=== PATIENT | female | born 1960 | race Caucasian/White ===

== ENCOUNTER → 2017-07-11 | Outpatient (CLI) | payer MEDICAID | LOC: FIMAGING 12:24 | PROVIDERS: ATTEND Family Medicine | DX: M99.83 Other biomechanical lesions of lumbar region (principal); M51.36 Other intervertebral disc degeneration, lumbar region; M54.16 Radiculopathy, lumbar region; M48.06 Spinal stenosis, lumbar region; M48.07 Spinal stenosis, lumbosacral region ==

== ENCOUNTER → 2017-08-07 | Outpatient (CLI) | payer MEDICAID | LOC: FIMAGING 07:32 | PROVIDERS: ATTEND Orthopaedic Surgery | DX: M23.222 Derangement of posterior horn of medial meniscus due to old tear or injury, left knee (principal); M24.10 Other articular cartilage disorders, unspecified site; M22.42 Chondromalacia patellae, left knee; M25.462 Effusion, left knee ==

== ENCOUNTER 2017-10-07 09:15 | Inpatient (IN) | payer MEDICAID ==
--- NOTE | 2017-10-06 17:21 | GHP ---
[f rep st] PREOP HISTORY AND PHYSICAL DATE OF ADMISSION: 10/07/2017 HISTORY: The patient is a 56-year-old female, who has had chronic problems with her left knee. Over a year ago, an arthroscopy was performed by myself, and this included partial medial and lateral men iscectomy; all 3 compartments were noted to have significant chondromalacia grade 3 and 4. She has s ignificant arthritis of this knee; it is in valgus malalignment, the most severe arthritis in the lat eral compartment. Over the last months, the knee has become increasingly swollen and painful includi ng emergency room visits. On aspiration, this was partially bloody fluid that Gram stain is signific ant for cultures negative. An MRI was performed in July of this year. There is significant synov ial hypertrophy and inflammation, especially in the suprapatellar recess. This may represent possibl e pigmented villonodular synovitis and could simply be synovitis. There has been interval increase i n articular cartilage loss, now grade 4 in the lateral compartment. She has maintained a large knee effusion, and her pain difficult to control. She has required narcotic medications. Her range of mo tion is limited. She has an altered gait. She has pain with activities of daily living. Previous c onservative measures have been tried. Though she is fairly young for a knee replacement, due to the chronic inflammation and severe osteoarthritis, a left total knee arthroplasty is planned. ALLERGIES: She has no known drug allergies. MEDICATIONS: Include oxycodone 5 mg tablets, 1 every 4-6 hours for pain. PAST MEDICAL/SURGICAL HISTORY: She has had her left knee scope back in April 2016. She has had other orthopedic procedures in and . She does have a history of ventricular arrhythmias. She is a nonsmoker. REVIEW OF SYSTEMS: Positive from the cardiac standpoint for ventricular arrhythmias. She has also b een using narcotics on a frequent basis and prolonged basis. PHYSICAL EXAM,: GENERAL: The patient is a well-developed, well-nourished female in no apparent dist ress. HEAD AND NECK: Normocephalic, atraumatic. CHEST: Clear. CARDIOVASCULAR: Regular rate and rhythm. ABDOMEN: Soft. NEUROLOGIC: She is alert and oriented x3. LEFT KNEE: Shows a large effus ion. This inhibits her flexion, and her range is from around 10 degrees of flexion to 90 degrees. N o erythema or streaking. Calf is nontender. Neurovascular exam is intact. IMPRESSION: Severe and progressive left knee osteoarthritis and persistent hemarthrosis. PLAN: A left knee replacement, synovectomy. Benefits and risks of surgery have been reviewed. She understands the risks include infection, damage to blood vessels or nerves, failure or loosening of c omponents, blood clot in the leg or lungs, bleeding and need for transfusion. She also understands t hat she is relatively young for a total knee replacement, putting her at increased risk for needing a knee revision. She also understands that knees that have had recurrent hemarthrosis are at some ris k for slower recovery and persistent swelling problems. She also has been using narcotics on a consi stent basis and will need more sophisticated pain management. She has signed a consent form, wishes to proceed. /[id number]/MODL
[~2017-10-07 09:15] MED LIST: POVIDONE-IODINE 20 ML in SODIUM CL IRRIG SOLUTION 500 ML IRR ONE; ROPIVACAINE 0.2% 80 MG, EPINEPHrine 0.2 MG, KETOROLAC TROMETHAMINE 30 MG in SYRINGE 0 ML IU ONE; TRANEXAMIC ACID 730 MG in NS 100 ML IV ONE
[2017-10-07] MEDS ORDERED: DEXAMETHASONE 4 MG/ML VIAL IVP ONE (11:28)
[2017-10-07] MEDS ORDERED: ceFAZolin 2 GM/SWFI 2 GM/20 ML SYR IVP ONE (11:28)
[2017-10-07] MEDS ORDERED: FAMOTIDINE 20 MG TAB PO ONE (11:28)
[2017-10-07] MEDS ORDERED: ACETAMINOPHEN 325 MG TAB PO ONE (11:28)
[2017-10-07] MEDS ORDERED: LR 1,000 ML IV ONE (11:29)
[2017-10-07] MEDS ORDERED: ceFAZolin 1 GM/5 ML SYR ONE (11:58)
--- NOTE | 2017-10-07 12:38 | PDANEPAE ---
ANE History of Present Illness 56 yo F w OA here for L TKA ANE Past Medical History - Cardiovascular History Hx Hypertension: No Hx Arrhythmias: No Hx Chest Pain: No Hx Coronary Artery / Peripheral Vascular Disease: No Hx CHF / Valvular Disease: No Hx Palpitations: No Cardiovascular History Comment: Ablation Dr Reyes -"Dr couldn't get areas of irritation of PVC's-permanently" "got some of them" - Pulmonary History Hx COPD: No Hx Asthma/Reactive Airway Disease: No Hx Recent Upper Respiratory Infection: No Hx Oxygen in Use at Home: No Hx Sleep Apnea: No Sleep Apnea Screening Result - Last Documented: Negative - Neurologic History Hx Cerebrovascular Accident: No Hx Seizures: No Hx Dementia: No Neurologic History Comment: had an episode after ablation w/"small stroke- affected vision,had some dizziness". No problems after. "Was an artery nicked w/ ablation?-Dr Reyes queried" - Endocrine History Hx Diabetes: No - Renal History Hx Renal Disorders: No - Liver History Hx Hepatic Disorders: No - Neurological & Psychiatric Hx Hx Neurological and Psychiatric Disorders: No - Cancer History Hx Cancer: No - Congenital Disorder History Hx Congenital Disorders: No - GI History Hx Gastrointestinal Disorders: No - Other Health History Other Health History: OA L knee-severe pain,effusion - Chronic Pain History Chronic Pain: Yes (L knee) - Surgical History Prior Surgeries: L knee scope 2015. R knee scope 2013. ablation-cardiac . lap candis. tonsillectomy age 12 ANE Review of Systems Review of Systems: - Exercise capacity Exercise capacity: >=4 METS METS (RN): 4 METS ANE Patient History - Allergies Allergies/Adverse Reactions: No Known Allergies Allergy (Verified 09/10/17 10:08) - Home Medications Home medications: home medication list seen and reviewed Home Medications: oxyCODONE IR [Oxycodone Ir (*)] 2.5 mg PO DAILY PRN 09/09/17 [Last Taken ] - NPO status NPO Since - Liquids (Date): 10/07/17 NPO Since - Liquids (Time): 04:00 NPO Since - Solids (Date): 10/06/17 NPO Since - Solids (Time): 15:00 - Anes Hx Anes Hx: no prior problems - Smoking Hx Smoking Status: Never smoked - Alcohol Use Alcohol Use: Heavy - Family Anes Hx Family Anes Hx: none ANE Labs/Vital Signs - Vital Signs Blood Pressure: 153/100 Heart Rate: 81 Respiratory Rate: 14 O2 Sat (%): 94 Height: 170.18 cm Weight: 72.575 kg ANE Physical Exam - Airway Neck exam: FROM Mallampati Score: Class 2 Mouth exam: normal dental/mouth exam - Pulmonary Pulmonary: no respiratory distress, clear to auscultation - Cardiovascular Cardiovascular: regular rate and rhythym, no murmur, rub, or gallop - ASA Status ASA Status: II ANE Anesthesia Plan Anesthesia Plan: GA with mask, spinal Regional Anesthesia: single shot NB, adductor canal FNB
[2017-10-07] MEDS ORDERED: MIDAZOLAM 2 MG/2 ML VIAL IVP ONE (12:41)
[2017-10-07] MEDS ORDERED: PROPOFOL/EMULSION 500 MG/50 ML BOTTLE IV ONE ×3 (12:51→14:38)
[2017-10-07] MEDS ORDERED: ROPIVACAINE HCL 150 MG/30 ML INJ ONE (14:38)
[2017-10-07] MEDS ORDERED: clonIDINE 1 MG/10 ML VIAL EP ONE (14:38)
[2017-10-07] MEDS ORDERED: LIDOCAINE 2% JELLY 5 ML TUBE ONE (14:38)
[2017-10-07] MEDS ORDERED: ACETAMINOPHEN 500 MG TAB PO PRN (14:50)
[2017-10-07] MEDS ORDERED: ONDANSETRON 4 MG/2 ML VIAL IVP PRN ×2 (14:50→15:49)
[2017-10-07] MEDS ORDERED: HYDROCODONE/APAP 5/325 TAB PO PRN (14:50)
[2017-10-07] MEDS ORDERED: NALOXONE HCL 0.4 MG/ML INJ IVP PRN (14:50)
[2017-10-07] MEDS ORDERED: OXYCODONE/APAP 5/325 TAB PO PRN (14:50)
[2017-10-07] MEDS ORDERED: DIAZEPAM 10 MG/2 ML SYR IVP PRN (14:50)
[2017-10-07] MEDS ORDERED: MAGNESIUM HYDROXIDE 30 ML UDCUP PO PRN (15:49)
[2017-10-07] MEDS ORDERED: DIPHENOXYLATE/ATROPINE LOMOTIL 1 TAB PO PRN (15:49)
[2017-10-07] MEDS ORDERED: ONDANSETRON DISINTEGRATING 4 MG TAB PO PRN (15:49)
[2017-10-07] MEDS ORDERED: LACTULOSE 20 GM/30 ML UDCUP PO PRN (15:49)
[2017-10-07] MEDS ORDERED: METOCLOPRAMIDE 10 MG/2 ML VIAL IVP PRN (15:49)
[2017-10-07] MEDS ORDERED: TEMAZEPAM 15 MG CAP PO PRN (15:49)
[2017-10-07] MEDS ORDERED: PROMETHAZINE HCL 25 MG/ML INJ IVP PRN (15:49)
[2017-10-07] MEDS ORDERED: diphenhydrAMINE 25 MG CAP PO PRN (15:49)
[2017-10-07] MEDS ORDERED: PROMETHAZINE HCL 25 MG SUPPR PR PRN (15:49)
[2017-10-07] MEDS ORDERED: BISACODYL 10 MG SUPP PR PRN (15:49)
[2017-10-07] MEDS ORDERED: KETOROLAC 30 MG/1 ML SDV IVP PRN (15:49)
[2017-10-07] MEDS ORDERED: POLYETHYLENE GLYCOL 3350 17 GM PKT PO PRN (15:49)
[2017-10-07] MEDS ORDERED: HYDROmorphONE/DILAUDID 1 MG/ML INJ ONE (15:58)
[2017-10-07] MEDS ORDERED: fentaNYL 100 MCG/2 ML INJ ONE (15:58)
[2017-10-07] MEDS ORDERED: LR 1,000 ML IV SCH (16:00)
[2017-10-07] MEDS: fentaNYL 100 MCG/2 ML INJ IVP PRN ×2 (16:02→16:20)
[2017-10-07] MEDS: HYDROmorphONE/DILAUDID 1 MG/ML INJ IVP PRN ×3 (16:02→16:38)
[2017-10-07] MEDS ORDERED: HYDROCODONE/APAP 5/325 TAB ONE (16:36)
[2017-10-07] MEDS: oxyCODONE IR 5 MG TAB PO PRN ×2 (19:40→23:12)
[2017-10-07] MEDS: ACETAMINOPHEN 325 MG TAB PO SCH ×2 (19:40→23:12)
[2017-10-07] MEDS: ceFAZolin 2 GM/SWFI 2 GM/20 ML SYR IVP SCH (20:36)
[2017-10-07] MEDS: SENNOSIDES/DOCUSATE SODIUM TAB PO SCH (20:37)
[2017-10-07] MEDS: FAMOTIDINE 20 MG TAB PO SCH (20:38)
[2017-10-07] MEDS ORDERED: ceFAZolin 2 GM/DEXTROSE 100 ML IV SCH (22:00)
[2017-10-07] MEDS: CYCLOBENZAPRINE 10 MG TAB PO PRN (23:12)
[2017-10-07] MEDS: ASPIRIN 325 MG TAB PO SCH (23:12)
--- NOTE | 2017-10-08 03:38 | GOP ---
[f rep st] OPERATIVE REPORT DATE OF OPERATION: 10/07/2017 SURGEON: Dexter Payne MD LEATHER SCRAPER: Gordo Capellan SA ANESTHESIOLOGIST: Dr. Méndez PREOPERATIVE DIAGNOSIS: Left knee osteoarthritis. POSTOPERATIVE DIAGNOSIS: Left knee osteoarthritis. PROCEDURE PERFORMED: Left total knee arthroplasty. FINDINGS: SPECIMENS: Include excised bone as well as synovial biopsy. All counts were correct. My rn surgical was a medical necessity to perform this total joint replacement. ESTIMATED BLOOD LOSS: Minimal. One drain. INDICATIONS: The patient is a 56-year-old female, who presents with severe tricompartment osteoarthr itis, most involved on the lateral side with valgus malalignment. In addition to her severe arthriti s, she has had repetitive hemarthroses that are culture negative. There is severe degenerative joint disease with cartilage loss and inflammation. Multiple conservative measures have been tried, inclu ding a previous arthroscopy and debridement. She proceeds now for a left total knee arthroplasty. DESCRIPTION OF PROCEDURE: The patient was taken to the operating room, and a spinal anesthetic was p erformed. She was then placed supine with IV sedation. She will have an adductor block in the recov sofiya room after surgery. She received preoperative antibiotics and tranexamic acid. A tourniquet was fit high on the left thigh, and the left leg was prepped and draped free with chlorhexidine. The li mb was elevated, exsanguinated, and the tourniquet inflated to 275 mmHg. I used a medial anterior in cision and dissected through subcutaneous tissue. I used a medial parapatellar arthrotomy. I invert ed the patella. I removed 9 mm of cartilage and bone, and restored that thickness with the patellar component sized at a 35. I drilled PEG holes. This was a good fit. The patella was gently everted. I flexed the knee. There was abundant synovitis throughout this joint that was debrided. I did se nd some pieces of the synovitis for pathology, as there is some concern that it could represent pigme nted villonodular synovitis. There was no specific mass. It was just diffuse synovitis, most abunda ntly in the suprapatellar pouch. I drilled a ship pilot hole in the distal femur using intramedullary dev ice for a 5 degree valgus cut. Because the knee was in severe valgus and there was some insufficienc y of the lateral femoral condyle, I used a +2 cut. I sized the femur to size 4. I made appropriate anterior, posterior, and chamfer cuts and notch cuts for this bi-cruciate stabilized knee, and the tr ial component was a good fit. I used an extramedullary jig on the tibia. I adjusted rotation, poste rior slope, and appropriate depth of cut. I completed the tibial cut perpendicular to the tibial sha ft. I sized this at a size 3, dialed in the rotation, and completed the tibial prep. All the compon ents were removed. Any residual meniscal tissue was debrided, and I did basically a partial synovect mina of this joint. The components were applied over cement, size 4 in the femur, 3 on the tibia, and a 35 patella. Once the cement had hardened, I did trial reductions. I found that a 9 mm articular tray gave me good extension, excellent rollback in extension, and appropriate ligamentous stability. Her patella tracked centrally. The joint was irrigated with antibiotic solution as well as a Betadi ne rinse. Because of the synovectomy work and her previous hemarthrosis, I did place a drain. She g ot a second dose of tranexamic acid. I closed the arthrotomy with interrupted [id number] suture s of 0 Mersilene, subcutaneous tissue was closed with 2-0 Monocryl, and the skin with giulia. The w ound was dressed with Betadine-soaked Adaptic, 4 x 4, sterile Webril, and a long-leg JOSE stocking salina lied. There were no complications. SUMMARY OF COMPONENTS: This is a [employer] knee, a bi-cruciate stabilized knee, all c omponents cemented. The femur is Oxinium. The articular tray is crosslink polyethylene. Femur size 4, tibia size 3, patella is a 35 mm, and the articular insert 9 mm thick. /[id number]/MODL
[2017-10-08] MEDS: ceFAZolin 2 GM/SWFI 2 GM/20 ML SYR IVP SCH (04:45)
[2017-10-08] MEDS: ACETAMINOPHEN 325 MG TAB PO SCH ×3 (04:46→18:28)
[2017-10-08] MEDS: oxyCODONE IR 5 MG TAB PO PRN ×4 (04:47→18:29)
[2017-10-08 05:40] LABS: HEMOGLOBIN 12.8 g/dL (12.6-16.3)
--- NOTE | 2017-10-08 08:07 | SOAPPROG ---
SOAP Progress Note Assessment/Plan: Assessment: 10/08/17 POD#1 L TKA, pain controlled, drain 300, xray fine Plan: 10/08/17 08:06 up with PT, will leave drain in through am, home later today or tomorrow Objective: Vital Signs Temp Pulse Resp BP Pulse Ox 36.7 C 68 16 124/86 H 94 10/08/17 07:37 10/08/17 07:37 10/08/17 07:37 10/08/17 07:37 10/08/17 07:37 Laboratory Results 10/08/17 05:17 10/07/17 10/08/17 10/09/17 05:59 05:59 05:59 Intake Total 1800 Output Total 870 Balance 930 ICD10 Worksheet Patient Problems: Problems Problem Status Onset Ventricular premature complexes Acute
[2017-10-08] MEDS: ASPIRIN 325 MG TAB PO SCH (08:23)
[2017-10-08] MEDS: FAMOTIDINE 20 MG TAB PO SCH ×2 (08:24→20:34)
[2017-10-08] MEDS: SENNOSIDES/DOCUSATE SODIUM TAB PO SCH ×2 (08:40→20:34)
--- NOTE | 2017-10-08 15:11 | ASMTCMCOM ---
CM Note CM Note Notes: PT rec home/HHC/24/hr supervision, pt agreeable to [facility]. Referral sent to [facility] in [employer]. Pt likely d/c tomorrow. CM to follow. Date Signed: 10/08/2017 03:10 PM Electronically Signed By:LAYNE Koenig
[2017-10-08] MEDS: CYCLOBENZAPRINE 10 MG TAB PO PRN (20:35)
[2017-10-09] MEDS: ACETAMINOPHEN 325 MG TAB PO SCH ×4 (00:15→17:51)
[2017-10-09] MEDS: oxyCODONE IR 5 MG TAB PO PRN ×5 (00:16→17:51)
[2017-10-09 05:03] LABS: HEMATOCRIT 36.3 % (38.0-47.0); HEMOGLOBIN 11.7 g/dL (12.6-16.3)
[2017-10-09] MEDS: CYCLOBENZAPRINE 10 MG TAB PO PRN (06:10)
[2017-10-09] MEDS: ASPIRIN 325 MG TAB PO SCH (08:27)
[2017-10-09] MEDS: FAMOTIDINE 20 MG TAB PO SCH (08:27)
[2017-10-09] MEDS: SENNOSIDES/DOCUSATE SODIUM TAB PO SCH (08:29)
[2017-10-09 12:20] VITALS: TEMP 97.6
[2017-10-09 15:08] VITALS: BP 121/78; PULSE 71; RESP 14; O2SAT 92
--- NOTE | 2017-10-09 15:41 | SOAPPROG ---
SOAP Progress Note Assessment/Plan: Assessment: 10/08/17 POD#1 L TKA, pain controlled, drain 300, xray fine 10/09/17 POD#2, drainage decreasing, will remove drain, knee painful Plan: 10/08/17 08:06 up with PT, will leave drain in through am, home later today or tomorrow 10/09/17 15:38 pain control, drain out, PT, likely home later today Objective: Vital Signs Temp Pulse Resp BP Pulse Ox 36.4 C 71 14 121/78 H 92 10/09/17 15:07 10/09/17 15:07 10/09/17 15:07 10/09/17 15:07 10/09/17 15:07 Laboratory Results 10/09/17 04:42 10/08/17 10/09/17 10/10/17 05:59 05:59 05:59 Intake Total 1800 930 Output Total 870 230 Balance 930 700 ICD10 Worksheet Patient Problems: Problems Problem Status Onset Ventricular premature complexes Acute
--- NOTE | 2017-10-09 17:34 | PDIAF ---
- Diagnosis Code Status: Full Code - Medication Management Discharge Medications: Medications to Continue on Transfer oxyCODONE IR [Oxycodone Ir (*)] 2.5 mg PO DAILY PRN 09/09/17 [Last Taken ] Aspirin [Aspirin 325 mg (*)] 325 mg PO DAILY tab 10/09/17 [Last Taken Unknown] oxyCODONE IR [Oxycodone Ir (*)] 5 - 10 mg PO Q4 PRN 14 Days #40 tab 10/09/17 [ Last Taken Unknown] Discharge Medications: Refer to the Discharge Home Medication list for PRN reason. - Orders Services needed: Physical Therapy Diet Recommendation: no restrictions on diet Diet Texture: Regular Texture Diet Natanael Stockings Discontinue Date: 2 weeks Wound Care Instructions: keep wound covered Activity/Weight Bearing Restrictions: WBAT, adv to full rom - Follow Up Care Current Providers and Referrals: Jacquelyn Ashby MD [Primary Care Provider] - Jeramie Wilcox MD [Medical Doctor] -
--- NOTE | 2017-10-10 10:47 | ASMTCMCOM ---
CM Note CM Note Notes: Pt medically stable and d/c yesterday w [facility]. Orders sent today in [employer] and [facility] notified. Date Signed: 10/10/2017 10:47 AM Electronically Signed By:LAYNE Koenig
--- NOTE | 2017-10-10 10:48 | ASDISCHSUM ---
Discharge Information Plan Status:Home with Home Health Medically Cleared to Leave: Discharge Date:10/09/2017 06:24 PM CM D/C Disposition:Home Health Service ADT D/C Disposition:Home Health Service Projected Discharge Date:10/09/2017 11:00 AM Transportation at D/C: Discharge Delay Reason: Follow-Up Date:10/09/2017 11:00 AM Discharge Slot: Final Diagnosis: Placement Information Referral Type:*Home Health Care Services Referral ID:[id number] Provider Name:[facility] [place] Address 1:[address] [place] [address]. Phone Number: Address 2: Fax Number: City:[place] Selection Factors: State:[place] Patient Contact Information Contact Name:MOHSEN Relationship: Address:[address] [place], [place] [address] City:[facility] Phone: State/Zip Code:[place] [address] Email: Financial Information Financial Class: Primary Plan Desc:[employer] [place] Primary Plan Number:[id number] Secondary Plan Desc: Secondary Plan Number: Assessment Information CM Personnel Associate Assessment CM Note CM Note Notes: Lacy is planning to discharge home with her family after her hip arthroplasty. Lacy noted she has a history of heart problems. Dr. Payne is aware of this and he has informed her she might need to stay at the hospital for one to two nights for post-op observation. Dr. Payne also spoke with Lacy about home health care services. Lacy does not have a preference for a home health care agency. Date Signed: 10/04/2017 09:04 AM Electronically Signed By:Floridalma Hope [facility] CM Progress Note CM Note CM Note Notes: PT rec home/HHC/24/hr supervision, pt agreeable to [facility]. Referral sent to [facility] in [employer]. Pt likely d/c tomorrow. CM to follow. Date Signed: 10/08/2017 03:10 PM Electronically Signed By:LAYNE Koenig [facility] CM Progress Note CM Note CM Note Notes: Pt medically stable and d/c yesterday w [facility]. Orders sent today in [employer] and Michele [facility] notified. Date Signed: 10/10/2017 10:47 AM Electronically Signed By:LAYNE Koenig Intervention Information
== END 2017-10-09 18:24 | disposition home health service (06) | DRG 470 ==
LOC: F3N 11:13
PROVIDERS: ADMIT Orthopaedic Surgery; ATTEND Orthopaedic Surgery
PROC: 0SRD0J9 Replacement of Left Knee Joint with Synthetic Substitute, Cemented, Open Approach (ICD-10-PCS; principal; 2017-10-07 13:15)
DX: M17.12 Unilateral primary osteoarthritis, left knee (principal); I49.3 Ventricular premature depolarization
CPT/HCPCS: 97116-GP; 97161-GP; 97165-GO; 97530-GP; C1713; J0171; J0690; J0735; J1100; J1170; J1885; J2250; J2704; J2795; J3010